=== PATIENT | female | born 1945 | race Hispanic/Latino ===

== ENCOUNTER 2017-11-28 21:39 | Emergency (ER) | payer OTHER ==
[~2017-11-28 21:39] MED LIST: ASPI-1005 PO; ATOR40TA69 PO; EZET10 PO; LEVO150T11 PO; LOSA100T29 PO; MAGN400T40 PO; METO-408 PO
[2017-11-28] MEDS ORDERED: ORPHENADRINE CITRATE 30 MG/ML ML ONE (22:29)
[2017-11-28] MEDS ORDERED: LIDOCAINE 5% TOPICAL PATCH TP ONE (22:30)
[2017-11-28] MEDS ORDERED: HYDROCODONE/ACETAMINOPHEN 5/325 MG TAB ONE (22:30)
== END 2017-11-28 23:32 | disposition home or self-care (01) ==
LOC: EDH 21:39
DX: M75.81 Other shoulder lesions, right shoulder (principal); I10 Essential (primary) hypertension; E78.5 Hyperlipidemia, unspecified; E07.9 Disorder of thyroid, unspecified; I25.10 Atherosclerotic heart disease of native coronary artery without angina pectoris; Z88.8 Allergy status to other drugs, medicaments and biological substances; Z85.828 Personal history of other malignant neoplasm of skin
CPT/HCPCS: 96372; 99283; J2360

== ENCOUNTER 2021-03-10 22:26 | Emergency (ER) | payer OTHER ==
[~2021-03-10] VITALS: Ht 144.8 cm; Wt 76.2 kg
[~2021-03-10 22:26] MED LIST changes: -EZET10 PO; +EZET10TA13 PO; -LOSA100T29 PO; +LOSA100T58 PO
[2021-03-10 22:51] LABS: EOSINOPHILS % (AUTO) 2.7 % (0.0-8.0); MEAN CORPUSCULAR HGB CONC 31.7 g/dL (32.0-36.0); MEAN CORPUSCULAR VOLUME 91.5 fL (79-99); MONOCYTES % (AUTO) 6.3 % (3.0-13.0); NEUTROPHILS % (AUTO) 68.7 % (40.0-77.0); PLATELET COUNT (AUTO) 344 K/uL (130-400); RED BLOOD CELL COUNT(AUTO) 4.59 MIL/uL (4.00-5.50); RED CELL DISTRIBUTION WIDTH 12.5 % (11.0-15.5); WHITE BLOOD COUNT (AUTO) 11.1 K/uL (4.8-10.8)
[2021-03-10 23:06] VITALS: BP 160/63
[2021-03-10 23:10] LABS: B-TYPE NATRIURETIC PEPTIDE 126 pg/mL (0-100)
[2021-03-10 23:12] LABS: PROTHROMBIN TIME 10.9 SEC (9.6-11.6)
[2021-03-10 23:13] LABS: PARTIAL THROMBOPLASTIN TIME 25.2 SEC (26.3-35.5)
[2021-03-10 23:15] LABS: CREATININE 0.8 mg/dL (0.5-1.5); POTASSIUM 3.9 mmol/L (3.5-5.1)
[2021-03-10 23:19] LABS: ALBUMIN 3.3 g/dL (3.5-5.0); BILIRUBIN,TOTAL 0.3 mg/dL (0.2-1.0); TOTAL PROTEIN, SERUM 7.6 g/dL (6.0-8.3)
[2021-03-10] MEDS ORDERED: NAPR-1192 PO (23:29)
[2021-03-10] MEDS ORDERED: KETOROLAC 30MG VIAL (30MG/ML) IM ONE (23:30)
[2021-03-10] MEDS ORDERED: KETOROLAC 30MG VIAL (30MG/ML) ONE (23:38)
[2021-03-11 00:20] VITALS: BP 134/58
[2021-03-11 01:29] VITALS: BP 126/45
[2021-03-11 01:40] VITALS: BP 115/40
== END 2021-03-11 01:45 | disposition home or self-care (01) ==
LOC: EDH 22:26
DX: S20.214A Contusion of middle front wall of thorax, initial encounter (principal); E03.9 Hypothyroidism, unspecified; E78.00 Pure hypercholesterolemia, unspecified; I10 Essential (primary) hypertension; I25.10 Atherosclerotic heart disease of native coronary artery without angina pectoris; Z88.5 Allergy status to narcotic agent; Z79.82 Long term (current) use of aspirin; Z79.899 Other long term (current) drug therapy; Z95.5 Presence of coronary angioplasty implant and graft; V49.49XA Driver injured in collision with other motor vehicles in traffic accident, initial encounter; Y93.89 Activity, other specified; Y92.89 Other specified places as the place of occurrence of the external cause; Y99.8 Other external cause status
CPT/HCPCS: 36415; 71045; 80053; 82550; 83880; 84484; 85025; 85610; 85730; 93005; 96372; 99283; J1885

== ENCOUNTER 2022-06-07 17:55 | Emergency (ER) | payer OTHER ==
[~2022-06-07] VITALS: Ht 139.7 cm; Wt 73.5 kg
[~2022-06-07 17:55] MED LIST changes: +NAPR-1192 PO
[2022-06-07] MEDS ORDERED: KETOROLAC 30MG VIAL (30MG/ML) IM ONE (18:30)
[2022-06-07] MEDS ORDERED: NAPR375T6 PO (18:53)
[2022-06-07 19:00] VITALS: BP 128/57
== END 2022-06-07 19:12 | disposition home or self-care (01) ==
LOC: EDH 17:55
DX: S76.011A Strain of muscle, fascia and tendon of right hip, initial encounter (principal); E78.00 Pure hypercholesterolemia, unspecified; I10 Essential (primary) hypertension; E03.9 Hypothyroidism, unspecified; I25.10 Atherosclerotic heart disease of native coronary artery without angina pectoris; Z90.49 Acquired absence of other specified parts of digestive tract; Z98.890 Other specified postprocedural states; Z79.899 Other long term (current) drug therapy; Z79.82 Long term (current) use of aspirin; Z88.8 Allergy status to other drugs, medicaments and biological substances; W19.XXXA Unspecified fall, initial encounter; Y93.89 Activity, other specified; Y92.89 Other specified places as the place of occurrence of the external cause; Y99.8 Other external cause status
CPT/HCPCS: 99283; 73502; 96372; J1885

== ENCOUNTER 2023-05-23 09:48 | Emergency (ER) | payer OTHER ==
[~2023-05-23] VITALS: Ht 147.3 cm; Wt 72.6 kg
[~2023-05-23 09:48] MED LIST changes: -EZET10TA13 PO; +EZET10TA81 PO; -LOSA100T58 PO; +LOSA100T59 PO; +NAPR375T6 PO
[2023-05-23] MEDS ORDERED: FENTANYL CITRATE PF 50 MCG/1 ML 2ML VIAL IVP ONE (10:30)
[2023-05-23 10:32] VITALS: O2SAT 98
[2023-05-23] MEDS ORDERED: ONDANSETRON 4MG INJ ONE (11:07)
[2023-05-23 11:13] LABS: HEMATOCRIT 43.7 % (36-48); MEAN CORPUSCULAR HEMOGLOBIN 29.2 pg (27.0-33.0); MEAN CORPUSCULAR HGB CONC 31.8 g/dL (32.0-36.0); MEAN CORPUSCULAR VOLUME 91.8 fL (79-99); RED BLOOD CELL COUNT(AUTO) 4.76 MIL/uL (4.00-5.50); RED CELL DISTRIBUTION WIDTH 11.9 % (11.0-15.5); WHITE BLOOD COUNT (AUTO) 12.1 K/uL (4.8-10.8)
[2023-05-23 11:21] LABS: CREATININE 0.8 mg/dL (0.5-1.5); POTASSIUM 3.6 mmol/L (3.5-5.1)
[2023-05-23 11:26] LABS: ALBUMIN 3.3 g/dL (3.5-5.0); BILIRUBIN,TOTAL 0.5 mg/dL (0.2-1.0); MAGNESIUM 1.9 mg/dL (1.80-2.40)
[2023-05-23] MEDS ORDERED: LIDOCAINE 5% TOPICAL PATCH TP ONE (11:30)
[2023-05-23] MEDS ORDERED: DIAZEPAM 2 MG TAB PO ONE (11:30)
[2023-05-23 12:00] VITALS: BP 138/79; PULSE 72; RESP 18
[2023-05-23] MEDS ORDERED: BACL10TA PO (14:10)
== END 2023-05-23 15:08 | disposition home or self-care (01) ==
LOC: EDH 09:48
DX: M46.1 Sacroiliitis, not elsewhere classified (principal); E03.9 Hypothyroidism, unspecified; E78.00 Pure hypercholesterolemia, unspecified; I10 Essential (primary) hypertension; Z79.82 Long term (current) use of aspirin; Z79.890 Hormone replacement therapy; Z88.5 Allergy status to narcotic agent
CPT/HCPCS: 99284; 72192; 83735; 80053; 85027; 86140; 36415; J3010; J2405

== ENCOUNTER 2023-09-09 22:44 | Emergency (ER) | payer OTHER ==
[~2023-09-09] VITALS: Ht 147.3 cm; Wt 74.8 kg
[~2023-09-09 22:44] MED LIST changes: +BACL10TA PO
[2023-09-09] MEDS: CYCLOBENZAPRINE HCL 10 MG TABLET PO ONE (23:05)
[2023-09-09] MEDS: KETOROLAC 30MG VIAL (30MG/ML) IVP ONE (23:34)
[2023-09-09] MEDS: DEXAMETHASONE SOD PHOSPHATE 4 MG/ML 1ML VIAL IVP ONE (23:34)
[2023-09-09 23:46] VITALS: BP 150/57; PULSE 93; RESP 17; O2SAT 98
[2023-09-10] MEDS ORDERED: OMEP40CA21 PO (00:16)
[2023-09-10] MEDS ORDERED: METH4TAB3 PO (00:16)
[2023-09-10] MEDS ORDERED: IBUP-2070 PO (00:16)
[2023-09-10] MEDS: DEXAMETHASONE SOD PHOSPHATE 4 MG/ML 1ML VIAL IVP ONE (00:19)
== END 2023-09-10 00:34 | disposition home or self-care (01) ==
LOC: EDH 22:44
DX: M47.898 Other spondylosis, sacral and sacrococcygeal region (principal); M47.816 Spondylosis without myelopathy or radiculopathy, lumbar region; M19.90 Unspecified osteoarthritis, unspecified site; I50.9 Heart failure, unspecified; E03.9 Hypothyroidism, unspecified
CPT/HCPCS: 99284; 96374; 72131; 96375 ×2; J1100 ×2; J1885

== ENCOUNTER 2023-11-12 14:18 | Emergency (ER) | payer OTHER ==
[~2023-11-12] VITALS: Ht 149.9 cm; Wt 73.5 kg
[~2023-11-12 14:18] MED LIST changes: +IBUP-2070 PO; +METH4TAB3 PO; +OMEP40CA21 PO
[2023-11-12 14:26] VITALS: BP 173/82; PULSE 87; RESP 29; O2SAT 96
[2023-11-12] MEDS ORDERED: IBUP-2070 PO (15:45)
[2023-11-12] MEDS: ACETAMINOPHEN 500 MG TABLET PO ONE (15:46)
[2023-11-12] MEDS: KETOROLAC 30MG VIAL (30MG/ML) IM ONE (15:46)
== END 2023-11-12 16:19 | disposition home or self-care (01) ==
LOC: EDH 14:18
DX: S00.93XA Contusion of unspecified part of head, initial encounter (principal); E03.9 Hypothyroidism, unspecified; E78.00 Pure hypercholesterolemia, unspecified; Z79.82 Long term (current) use of aspirin; Z79.890 Hormone replacement therapy; Z79.899 Other long term (current) drug therapy; Z88.5 Allergy status to narcotic agent; Z90.710 Acquired absence of both cervix and uterus; Z95.5 Presence of coronary angioplasty implant and graft; W01.0XXA Fall on same level from slipping, tripping and stumbling without subsequent striking against object, initial encounter; Y93.89 Activity, other specified; Y92.89 Other specified places as the place of occurrence of the external cause; Y99.8 Other external cause status
CPT/HCPCS: 99284; 70450; 72125; 70486; 96372; J1885